=== PATIENT | female | born 1995 | race Caucasian/White ===

== ENCOUNTER 2020-03-06 01:09 | Emergency (ER) | payer OTHER ==
[~2020-03-06] VITALS: Ht 167.6 cm; Wt 158.8 kg
[2020-03-06 01:25] VITALS: BP 149/70
--- NOTE | 2020-03-06 01:30 | NUR ---
24 YO FEMALE CO RECTAL BLEEDING X2D. BS ACTIVE IN ALL QUADS. PT STATES THAT SHE SEES BLOOD IN THE TOILET. PT HAS NO PAIN WHEN WIPING AND NO ABD PAIN. NO MED HX AND NO RX
[2020-03-06 02:06] LABS: BASOPHILS # (AUTO) 0.1 K/uL (0.00-0.22); BASOPHILS % (AUTO) 0.8 % (0.0-2.0); EOSINOPHILS # (AUTO) 0.3 K/uL (0-0.4); EOSINOPHILS % (AUTO) 2.7 % (0.0-4.0); HEMATOCRIT 36.9 % (36-48); HEMOGLOBIN 11.8 g/dL (12.0-16.0); LYMPHOCYTES # (AUTO) 3.2 K/uL (2.5-16.5); LYMPHOCYTES % (AUTO) 29.2 % (20.5-51.1); MEAN CORPUSCULAR HEMOGLOBIN 25 pg (27-31); MEAN CORPUSCULAR HGB CONC 32 g/dL (33-37); MEAN CORPUSCULAR VOLUME 77.5 fL (80-94); MONOCYTES # (AUTO) 0.8 K/uL (0.8-1.0); MONOCYTES % (AUTO) 6.9 % (1.7-9.3); NEUTROPHILS # (AUTO) 6.7 K/uL (1.8-7.7); NEUTROPHILS % (AUTO) 60.4 % (42.2-75.2); PLATELET COUNT (AUTO) 310 K/uL (140-450); RED BLOOD CELL COUNT(AUTO) 4.77 MIL/uL (4.20-5.40); RED CELL DISTRIBUTION WIDTH 16.1 % (11.6-13.7)
[2020-03-06 02:20] LABS: ANION GAP 11.5 (8-16); CARBON DIOXIDE 27.6 mmol/L (21-32); CREATININE 0.6 mg/dL (0.6-1.3); POTASSIUM 4.1 mmol/L (3.5-5.1)
[2020-03-06 02:50] VITALS: BP 149/70
--- NOTE | 2020-03-06 02:50 | NUR ---
Patient discharged with v/s stable. Written and verbal after care instructions given and explained. Patient verbalized understanding. Ambulatory with steady gait. All questions addressed prior to discharge. Advised to follow up with PMD.
== END 2020-03-06 02:50 | disposition home or self-care (01) ==
LOC: MED 01:09
DX: K62.5 Hemorrhage of anus and rectum (principal); R03.0 Elevated blood-pressure reading, without diagnosis of hypertension
CPT/HCPCS: 36415; 80048; 85025; 99283

== ENCOUNTER 2020-07-14 19:20 | Emergency (ER) | payer OTHER ==
[~2020-07-14] VITALS: Ht 152.4 cm; Wt 146.1 kg
[2020-07-14 19:34] VITALS: BP 162/97
--- NOTE | 2020-07-14 19:48 | NUR ---
25 Y/O FEMALE C/O LOWER BACK PAIN. 10 SHARP, ACHING PAIN. PT SLIPPED IN SHOWER YESTERDAY BUT WAS ABLE TO CATCH HERSELF BUT FEELS LIKE SHE PULLED A MUSCLE IN HER BACK. PMH: PRE-DM , ANXIETY ALLERGIES: SEAFOOD
--- NOTE | 2020-07-14 19:56 | NUR ---
Dr. Rosales examining patient.
--- NOTE | 2020-07-14 20:02 | NUR ---
PT TAKEN TO XRAY VIA W/C
[2020-07-14] MEDS ORDERED: KETOROLAC 60 MG/2 ML VIAL IM ONE (20:05)
[2020-07-14] MEDS ORDERED: IBUPROFEN 800 MG TAB PO ONE (20:20)
[2020-07-14 20:26] VITALS: BP 162/97
--- NOTE | 2020-07-14 20:26 | NUR ---
Patient discharged with v/s stable. Written and verbal after care instructions given and explained. Patient alert, oriented and verbalized understanding of instructions. Ambulatory with steady gait. All questions addressed prior to discharge. ID band removed. Patient advised to follow up with PMD. Rx of TRAMADOL HYDROCHLORIDE AND MOTRIN given. Patient educated on indication of medication including possible reaction and side effects. Opportunity to ask questions provided and answered.
== END 2020-07-14 20:26 | disposition home or self-care (01) ==
LOC: MED 19:20
DX: S39.012A Strain of muscle, fascia and tendon of lower back, initial encounter (principal); R03.0 Elevated blood-pressure reading, without diagnosis of hypertension; R73.03 Prediabetes; W01.0XXA Fall on same level from slipping, tripping and stumbling without subsequent striking against object, initial encounter; Y93.E1 Activity, personal bathing and showering; Y92.89 Other specified places as the place of occurrence of the external cause; Y99.8 Other external cause status
CPT/HCPCS: 72100; 81002; 81025; 99283; J1885; Q0092

== ENCOUNTER 2020-09-18 18:41 | Emergency (ER) | payer OTHER ==
[~2020-09-18] VITALS: Ht 152.4 cm; Wt 147.4 kg
[2020-09-18 18:57] VITALS: BP 123/63
--- NOTE | 2020-09-18 19:20 | NUR ---
25 YO F BIB SELF FOR C/C OF INTERMITTENT "POKING" CHEST PAIN X1 DAY. PT DENIES PAIN AT THIS TIME. REPORTS NAUSEA NO VOMITING, DENIES DIARRHEA, COUGH, FEVER, AND SOB. PT STATES SHE TOOK 800MG OF IBUPROFEN AT 1700 THIS EVENING. STATES SHE IS FEELING UNDER ALOT OF STRESS DUE TO LOSS OF HER FATHER. BED LOCKED AND IN LOWEST POSITION, SIDE RAILS X2. 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 MED HX: PANIC DISORDER, ANXIETY
--- NOTE | 2020-09-18 19:23 | NUR ---
EKG AT BEDSIDE
--- NOTE | 2020-09-18 19:31 | NUR ---
LAB AT BEDSIDE
[2020-09-18 19:42] LABS: BASOPHILS # (AUTO) 0.1 K/uL (0.00-0.22); BASOPHILS % (AUTO) 0.4 % (0.0-2.0); EOSINOPHILS # (AUTO) 0.3 K/uL (0-0.4); EOSINOPHILS % (AUTO) 2.5 % (0.0-4.0); HEMATOCRIT 35.8 % (36-48); HEMOGLOBIN 11.5 g/dL (12.0-16.0); LYMPHOCYTES # (AUTO) 2.9 K/uL (2.5-16.5); LYMPHOCYTES % (AUTO) 24.7 % (20.5-51.1); MEAN CORPUSCULAR HEMOGLOBIN 24 pg (27-31); MEAN CORPUSCULAR HGB CONC 32 g/dL (33-37); MONOCYTES # (AUTO) 0.7 K/uL (0.8-1.0); MONOCYTES % (AUTO) 6.3 % (1.7-9.3); NEUTROPHILS # (AUTO) 7.8 K/uL (1.8-7.7); NEUTROPHILS % (AUTO) 66.1 % (42.2-75.2); PLATELET COUNT (AUTO) 289 K/uL (140-450); RED BLOOD CELL COUNT(AUTO) 4.77 MIL/uL (4.20-5.40); RED CELL DISTRIBUTION WIDTH 15.9 % (11.6-13.7); WHITE BLOOD COUNT (AUTO) 11.8 K/uL (4.8-10.8)
--- NOTE | 2020-09-18 19:49 | NUR ---
RAD AT BEDSIDE
[2020-09-18 19:56] LABS: ALBUMIN 3.6 g/dL (3.4-5.0); ANION GAP 12.3 (8-16); CARBON DIOXIDE 29.6 mmol/L (21-32); CREATININE 0.8 mg/dL (0.6-1.3); POTASSIUM 3.9 mmol/L (3.5-5.1); TOTAL BILIRUBIN 0.2 mg/dL (0.0-1.0)
[2020-09-18 21:39] VITALS: BP 121/86
--- NOTE | 2020-09-18 21:39 | NUR ---
Patient discharged with v/s stable. Written and verbal after care instructions given and explained. Patient alert, oriented and verbalized understanding of instructions. Ambulatory with steady gait. All questions addressed prior to discharge. ID band removed. Patient advised to follow up with PMD. Rx of KLONOPIN given. Patient educated on indication of medication including possible reaction and side effects. Opportunity to ask questions provided and answered.
== END 2020-09-18 21:39 | disposition home or self-care (01) ==
LOC: MED 18:41
DX: R07.89 Other chest pain (principal)
CPT/HCPCS: 36415; 71045; 80053; 84484; 84702; 85025; 93005; 99285; Q0092

== ENCOUNTER 2020-11-15 18:39 | Emergency (ER) | payer OTHER ==
[~2020-11-15] VITALS: Ht 152.4 cm; Wt 145.1 kg
[2020-11-15 18:49] VITALS: BP 141/80
--- NOTE | 2020-11-15 18:55 | NUR ---
ZACKERY. HANDED ON URINE CUP.
[2020-11-15 20:34] LABS: BASOPHILS # (AUTO) 0.1 K/uL (0.00-0.22); BASOPHILS % (AUTO) 0.6 % (0.0-2.0); EOSINOPHILS # (AUTO) 0.2 K/uL (0-0.4); EOSINOPHILS % (AUTO) 2.1 % (0.0-4.0); HEMATOCRIT 35.3 % (36-48); HEMOGLOBIN 11.1 g/dL (12.0-16.0); LYMPHOCYTES # (AUTO) 2.1 K/uL (2.5-16.5); LYMPHOCYTES % (AUTO) 18.9 % (20.5-51.1); MEAN CORPUSCULAR HEMOGLOBIN 24 pg (27-31); MEAN CORPUSCULAR HGB CONC 31 g/dL (33-37); MEAN CORPUSCULAR VOLUME 74.9 fL (80-94); MONOCYTES # (AUTO) 0.7 K/uL (0.8-1.0); MONOCYTES % (AUTO) 5.7 % (1.7-9.3); NEUTROPHILS # (AUTO) 8.3 K/uL (1.8-7.7); NEUTROPHILS % (AUTO) 72.7 % (42.2-75.2); PLATELET COUNT (AUTO) 297 K/uL (140-450); RED BLOOD CELL COUNT(AUTO) 4.72 MIL/uL (4.20-5.40); RED CELL DISTRIBUTION WIDTH 15.4 % (11.6-13.7); WHITE BLOOD COUNT (AUTO) 11.4 K/uL (4.8-10.8)
[2020-11-15 20:49] LABS: PROTHROMBIN TIME 9.4 secs (10.8-13.4)
[2020-11-15 21:00] LABS: ALBUMIN 3.7 g/dL (3.4-5.0); ANION GAP 12.4 (8-16); CARBON DIOXIDE 29.6 mmol/L (21-32); CREATININE 0.7 mg/dL (0.6-1.3); TOTAL BILIRUBIN 0.2 mg/dL (0.0-1.0)
--- NOTE | 2020-11-15 21:25 | NUR ---
PATIENT ELOPED FROM FACILITY. DISCHARGE INSTRUCTIONS NOT GIVEN TO PATIENT. DR. OLIVA NOTIFIED.
[2020-11-15 22:34] LABS: APPEARANCE,URINE CLEAR (CLEAR); BILIRUBIN,URINE NEGATIVE (NEGATIVE); BLOOD, URINE 2+ (NEGATIVE); COLOR,URINE YELLOW (YELLOW); LEUKOCYTE ESTERASE ,URINE NEGATIVE (NEGATIVE); NITRITE, URINE NEGATIVE (NEGATIVE); UGLUCOSE NEGATIVE (NEGATIVE)
[2020-11-15 23:09] LABS: RBC,URINE 0-5 /HPF (0-5); WBC,URINE 0-5 /HPF (0-5)
--- NOTE | 2020-11-22 10:33 | NUR ---
LATE ENTRY -- PT HAS LEFT FACILITY WITHOUT BEING SEEN BY DR OLIVA.
== END 2020-11-15 21:25 | disposition left against medical advice (07) ==
LOC: MED 18:39
DX: N93.9 Abnormal uterine and vaginal bleeding, unspecified (principal)
CPT/HCPCS: 36415; 76830; 80053; 81001; 81025; 85025; 85610; 85730; 99281; 99284

== ENCOUNTER 2021-12-07 19:11 | Emergency (ER) | payer OTHER ==
[~2021-12-07] VITALS: Ht 152.4 cm; Wt 135.7 kg
[2021-12-07 19:16] VITALS: BP 106/75
[2021-12-07] MEDS ORDERED: NAPR-54 PO (22:11)
[2021-12-07] MEDS ORDERED: CLON0.5T PO (22:11)
[2021-12-07 23:07] VITALS: BP 110/81
== END 2021-12-07 23:00 | disposition home or self-care (01) ==
LOC: MED 19:11
DX: F41.9 Anxiety disorder, unspecified (principal); R07.89 Other chest pain; M25.511 Pain in right shoulder; M25.512 Pain in left shoulder; E11.9 Type 2 diabetes mellitus without complications; E78.00 Pure hypercholesterolemia, unspecified
CPT/HCPCS: 71045; 93005; 99283

== ENCOUNTER 2024-01-28 14:53 | Emergency (ER) | payer OTHER ==
[~2024-01-28] VITALS: Ht 149.9 cm; Wt 137.0 kg
[~2024-01-28 14:53] MED LIST: CLON0.5T PO; NAPR-54 PO
[2024-01-28 15:12] VITALS: BP 117/75; PULSE 93; RESP 18; TEMP 98.2; O2SAT 99
[2024-01-28] MEDS: IBUPROFEN 600 MG TAB PO ONE (16:10)
[2024-01-28 16:21] LABS: ANION GAP 10.3 (8-16); CALCIUM 8.5 mg/dL (8.5-10.1); CARBON DIOXIDE 27.7 mmol/L (21-32); CREATININE 0.8 mg/dL (0.6-1.3)
[2024-01-28 16:27] LABS: BASOPHILS # (AUTO) 0.1 K/uL (0.00-0.22); BASOPHILS % (AUTO) 0.7 % (0.0-2.0); EOSINOPHILS # (AUTO) 0.3 K/uL (0-0.4); EOSINOPHILS % (AUTO) 2.9 % (0.0-4.0); HEMATOCRIT 24.1 % (36-48); HEMOGLOBIN 7.4 g/dL (12.0-16.0); LYMPHOCYTES # (AUTO) 2.3 K/uL (2.5-16.5); LYMPHOCYTES % (AUTO) 22.4 % (20.5-51.1); MEAN CORPUSCULAR HEMOGLOBIN 18 pg (27-31); MEAN CORPUSCULAR HGB CONC 31 g/dL (33-37); MEAN CORPUSCULAR VOLUME 58.5 fL (80-94); MONOCYTES # (AUTO) 0.6 K/uL (0.8-1.0); MONOCYTES % (AUTO) 6.2 % (1.7-9.3); NEUTROPHILS # (AUTO) 6.9 K/uL (1.8-7.7); NEUTROPHILS % (AUTO) 67.8 % (42.2-75.2); PLATELET COUNT (AUTO) 435 K/uL (140-450); RED BLOOD CELL COUNT(AUTO) 4.12 MIL/uL (4.20-5.40); RED CELL DISTRIBUTION WIDTH 18.9 % (11.6-13.7); WHITE BLOOD COUNT (AUTO) 10.2 K/uL (4.8-10.8)
[2024-01-28 17:56] VITALS: BP 120/78; PULSE 88; RESP 16; TEMP 98.2; O2SAT 99
== END 2024-01-28 17:56 | disposition home or self-care (01) ==
LOC: MED 14:53
DX: F41.0 Panic disorder [episodic paroxysmal anxiety] (principal); G43.909 Migraine, unspecified, not intractable, without status migrainosus; D64.9 Anemia, unspecified; Z79.899 Other long term (current) drug therapy
CPT/HCPCS: 36415; 71045; 80048; 81025; 84484; 85025; 93005; 99285

== ENCOUNTER 2024-03-26 14:03 | Emergency (ER) | payer OTHER ==
[~2024-03-26] VITALS: Ht 149.9 cm; Wt 133.8 kg
[~2024-03-26 14:03] MED LIST changes: +CLON-1201 PO; -CLON0.5T PO; +NAPR-337 PO; -NAPR-54 PO
[2024-03-26 14:12] VITALS: BP 115/74; PULSE 80; RESP 18; TEMP 97.1; O2SAT 97
[2024-03-26] MEDS: KETOROLAC 60 MG/2 ML VIAL IM ONE (15:09)
== END 2024-03-26 14:47 | disposition home or self-care (01) ==
LOC: MED 14:03
DX: M79.602 Pain in left arm (principal); R20.2 Paresthesia of skin; F41.9 Anxiety disorder, unspecified; E11.9 Type 2 diabetes mellitus without complications; I10 Essential (primary) hypertension; Z79.1 Long term (current) use of non-steroidal anti-inflammatories (NSAID); Z79.899 Other long term (current) drug therapy
CPT/HCPCS: 96372; 99283; J1885